=== PATIENT | male | born 1970 | race Caucasian/White ===

== ENCOUNTER → 2021-06-02 | Outpatient (CLI) | payer BC ==
--- NOTE | 2021-06-02 09:19 | RAD ---
EXAM: Thoracic spine, 3 views. HISTORY: Pain. COMPARISON: None. FINDINGS: 3 views of the thoracic spine are obtained. There is mild S-shaped thoracic scoliosis. Ther e is no listhesis. The vertebral bodies are normal in height and the disc spaces are preserved. There is minimal multilevel endplate remodeling IMPRESSION: Mild thoracic scoliosis and minimal multilevel endplate change. No acute osseous finding. Electronically signed by: Asha Zamora MD (06/02/2021 9:17 AM) [id number]
--- NOTE | 2021-06-02 09:48 | RAD ---
Lumbar spine 3 views. HISTORY: Acute back pain 3 views were taken the lumbar spine. Lumbar spines in normal alignment. There are mild hypertrophic c hanges mainly at L3-4. There is no acute fracture. There is no abnormal subluxation. IMPRESSION: 1. Mild hypertrophic changes at L3-4. 2. No fracture or other acute osseous abnormality. Electronically signed by: Roger Bailey MD (06/02/2021 9:45 AM) [facility]
== END ==
LOC: RAD 08:35
PROVIDERS: ATTEND Nurse Practitioner Family
DX: M41.84 Other forms of scoliosis, thoracic region (principal); M54.5 Low back pain; M54.6 Pain in thoracic spine
CPT/HCPCS: 72072; 72100